=== PATIENT | female | born 1965 | race Caucasian/White ===

== ENCOUNTER → 2017-04-14 | Outpatient (CLI) | payer BC ==
--- NOTE | 2017-04-15 06:55 | US ---
EXAMINATION TYPE: US thyroid st tissue head/neck DATE OF EXAM: 04/14/2017 COMPARISON: US 2012 CLINICAL HISTORY: E03.9 Hypothyroidism,[id number] nodule. Pt on Synthroid x 1 year, pt stat es feeling something in throat GLAND SIZE: Right Lobe: 3.9 x 1.1 x 1.6 cm Overall Parenchyma: homogenous other than a 2 mm hypoechoic lesion. Left Lobe: 3.4 x 1.0x 1.3 cm Overall Parenchyma: homogeneous other than a 2 mm hypoechoic lesion. Isthmus Thickness: 0.2 cm NODULES: Two, small 2mm, too small to characterize nodules on each lobe . Bilateral neck scanned, small sub-centimeter (<0.5 cm) lymph nodes visible . No significant changes f rom study in 2011 IMPRESSION: Nonenlarged homogeneous thyroid gland other than bilateral 2 mm hypoechoic lesions, unchanged from 05 08 and presumably benign.
== END | disposition home or self-care (01) ==
LOC: RADUSMAIN 16:00
PROVIDERS: ATTEND Internal Medicine
DX: E04.1 Nontoxic single thyroid nodule (principal); E03.9 Hypothyroidism, unspecified
CPT/HCPCS: 76536

== ENCOUNTER → 2017-06-09 | Outpatient (CLI) | payer BC ==
--- NOTE | 2017-06-10 07:45 | MM ---
Reason for exam: screening (asymptomatic). Last mammogram was performed 1 year ago. History: Benign excisional biopsy of the left breast, July 2005. Took hormonal contraceptives for 10 years beginning at age 19. Physical Findings: A clinical breast exam by your physician is recommended on an annual basis and results should be correlated with mammographic findings. MG Screening Mammo w CAD Bilateral CC and MLO view(s) were taken. Prior study comparison: June 13, 2016, left breast MG work up mamm w CAD LT. June 05, 2016, bilateral MG screening mammo w CAD. The breast tissue is heterogeneously dense. This may lower the sensitivity of mammography. There is no discrete abnormality. Stable post operative changes in the left breast. No significant changes when compared with prior studies. ASSESSMENT: Benign, BI-RAD 2 RECOMMENDATION: Routine screening mammogram of both breasts in 1 year.
== END | disposition home or self-care (01) ==
LOC: RADMAMWWP 07:43
PROVIDERS: ATTEND Obstetrics & Gynecology
DX: Z12.31 Encounter for screening mammogram for malignant neoplasm of breast (principal)

== ENCOUNTER → 2018-06-14 | Outpatient (CLI) | payer BC ==
--- NOTE | 2018-06-14 14:05 | MM ---
Reason for exam: screening (asymptomatic). Last mammogram was performed 1 year ago. History: Benign excisional biopsy of the left breast, July 2005. Took hormonal contraceptives for 10 years beginning at age 19. Physical Findings: A clinical breast exam by your physician is recommended on an annual basis and results should be correlated with mammographic findings. MG 3D Screening Mammo W/Cad Bilateral CC and MLO view(s) were taken. Prior study comparison: June 09, 2017, bilateral MG screening mammo w CAD. June 13, 2016, left breast MG work up mamm w CAD LT. The breast tissue is heterogeneously dense. This may lower the sensitivity of mammography. Focal asymmetry upper outer left breast is stable. No significant changes when compared with prior studies. ASSESSMENT: Benign, BI-RAD 2 RECOMMENDATION: Routine screening mammogram of both breasts in 1 year.
== END | disposition home or self-care (01) ==
LOC: RADMAMWWP 07:31
PROVIDERS: ATTEND Obstetrics & Gynecology
DX: Z12.31 Encounter for screening mammogram for malignant neoplasm of breast (principal)
CPT/HCPCS: 77063; 77067

== ENCOUNTER → 2019-07-12 | Outpatient (CLI) | payer BC ==
[2019-07-12 09:54] LABS: ALT 35 U/L (9-52); AST 36 U/L (14-36); African American GFR (CKD) >90 (>60 ml/min/1.73 sqM); Albumin 4.2 g/dL (3.5-5.0); Alkaline Phosphatase 57 U/L (38-126); Anion Gap 9 mmol/L; Blood Urea Nitrogen 11 mg/dL (7-17); Calcium 9.7 mg/dL (8.4-10.2); Carbon Dioxide 27 mmol/L (22-30); Chloride 109 mmol/L (98-107); Cholesterol 175 mg/dL (<200); Glucose 92 mg/dL (74-99); HDL Cholesterol 75 mg/dL (40-60); LDL Cholesterol,Calculated 91 mg/dL (0-99); Non-African American GFR(CKD) 84 (>60 ml/min/1.73 sqM); Potassium 4.4 mmol/L (3.5-5.1); Sodium 145 mmol/L (137-145); Total Bilirubin 0.6 mg/dL (0.2-1.3); Total Protein 7.3 g/dL (6.3-8.2); Triglycerides 44 mg/dL (<150)
[2019-07-12 10:06] LABS: T4, Free (Free Thyroxine) 0.96 ng/dL (0.78-2.19)
--- NOTE | 2019-07-12 13:03 | BD ---
EXAMINATION TYPE: Axial Bone Density DATE OF EXAM: 07/12/2019 COMPARISON: NONE CLINICAL HISTORY: 53 YR OLD FEMALE...ICD-10 CODE: Z78.0 PMS, N95.1 PMS Height: 63.5 Weight: 142 FRAX RISK QUESTIONS: Family History (Parent hip fracture): YES RISK FACTORS HISTORY OF: History of Wrist Fracture: RT WRIST AT 11 YRS OLD Family History of Osteoporosis: YES, MOTHER WITH HIP BREAKS Active: YES Diet low in dairy products/other sources of calcium: YES Postmenopausal woman: YES, AT AGE 52 Hyperparathyroidism: NO Adrenal Insufficiency: NO MEDICATIONS: Thyroid Medications: YES, SYNTHROID FOR ABOUT 5 YRS Additional Medications: NOTHING TO NOTE Additional History: THYROID ONLY EXAM MEASUREMENTS: Bone mineral densitometry was performed using the [employer] System. Bone mineral density as measured about the Lumbar spine is: ----- L1-L4(G/cm2): 1.398 T Score Values are as follows: ----- L1: 0.9 ----- L2: 1.7 ----- L3: 2.1 ----- L4: 2.2 ----- L1-L4: 1.8 Bone mineral density FIRST DEXA SCAN......BASELINE STUDY Bone mineral density about the R hip (g/cm2): 0.968 Bone mineral density about the L hip (g/cm2): 0.979 T Score values are as follows: -----R Neck: -0.1 -----L Neck: -0.5 -----R Total: -0.2 -----L Total: -0.3 Bone mineral density BASELINE STUDY FRAX%s: THERE IS A 9.4% CHANCE FOR A MAJOR OSTEOPOROTIC FX AND A 0.1% FOR HIP.....PROBABILITY FOR F X IN 10 YRS TIME IMPRESSION: No evidence for osteoporosis or osteopenia. NOTE: T-SCORE=SD OF THE YOUNG ADULT MEAN.
--- NOTE | 2019-07-13 13:24 | MM ---
Reason for exam: screening (asymptomatic). Last mammogram was performed 1 year and 1 month ago. History: Patient is postmenopausal. Benign excisional biopsy of the left breast, July 2005. Took hormonal contraceptives for 10 years beginning at age 19. Physical Findings: A clinical breast exam by your physician is recommended on an annual basis and results should be correlated with mammographic findings. MG 3D Screening Mammo W/Cad Bilateral CC and MLO view(s) were taken. Prior study comparison: June 14, 2018, bilateral MG 3d screening mammo w/cad. June 09, 2017, bilateral MG screening mammo w CAD. There are scattered fibroglandular densities. Focal asymmetry left upper outer quadrant, stable. No significant changes when compared with prior studies. ASSESSMENT: Benign, BI-RAD 2 RECOMMENDATION: Routine screening mammogram of both breasts in 1 year.
== END | disposition home or self-care (01) ==
LOC: RADMAMWWP 08:08
PROVIDERS: ATTEND Obstetrics & Gynecology
DX: Z12.31 Encounter for screening mammogram for malignant neoplasm of breast (principal); N95.1 Menopausal and female climacteric states; Z13.220 Encounter for screening for lipoid disorders; Z13.29 Encounter for screening for other suspected endocrine disorder
CPT/HCPCS: 36415; 77063; 77067; 77080; 80053; 80061; 84439; 84443; 84479

== ENCOUNTER → 2020-03-14 | Outpatient (CLI) | payer BC | END | disposition home or self-care (01) | LOC: LABWHC1 11:19 | PROVIDERS: ATTEND Internal Medicine | DX: Z11.59 Encounter for screening for other viral diseases (principal) | CPT/HCPCS: 36415 ==

== ENCOUNTER → 2020-05-25 | Outpatient (CLI) | payer BC ==
[2020-05-25 17:52] LABS: Estradiol 56.4 pg/mL; Follicle Stimulating Hormone 64.1 mIU/mL
== END | disposition home or self-care (01) ==
LOC: LABWHC1 08:01
PROVIDERS: ATTEND Obstetrics & Gynecology
DX: E03.9 Hypothyroidism, unspecified (principal); L65.9 Nonscarring hair loss, unspecified; E34.50 Androgen insensitivity syndrome, unspecified; R53.83 Other fatigue
CPT/HCPCS: 36415; 82670; 83001; 84144; 84402; 84403; 84443; 84481

== ENCOUNTER → 2020-09-25 | Outpatient (CLI) | payer BC ==
--- NOTE | 2020-09-28 10:35 | MM ---
Reason for exam: screening (asymptomatic). Last mammogram was performed 1 year and 2 months ago. History: Patient is postmenopausal. Benign excisional biopsy of the left breast, July 2005. Took hormonal contraceptives for 10 years beginning at age 19. Physical Findings: A clinical breast exam by your physician is recommended on an annual basis and results should be correlated with mammographic findings. MG 3D Screening Mammo W/Cad Bilateral CC and MLO view(s) were taken. Prior study comparison: July 12, 2019, bilateral MG 3d screening mammo w/cad. June 14, 2018, bilateral MG 3d screening mammo w/cad. There are scattered fibroglandular densities. No significant changes when compared with prior studies. ASSESSMENT: Negative, BI-RAD 1 RECOMMENDATION: Routine screening mammogram of both breasts in 1 year.
== END | disposition home or self-care (01) ==
LOC: RADMAMWWP 16:16
PROVIDERS: ATTEND Obstetrics & Gynecology
DX: Z12.31 Encounter for screening mammogram for malignant neoplasm of breast (principal)
CPT/HCPCS: 77063; 77067

== ENCOUNTER → 2021-09-26 | Outpatient (CLI) | payer BC ==
--- NOTE | 2021-09-27 11:39 | MM ---
Reason for exam: screening (asymptomatic). Last mammogram was performed 1 year ago. History: Patient is postmenopausal. Benign excisional biopsy of the left breast, July 2005. Took hormonal contraceptives for 10 years beginning at age 19. Took estrogen for 4 months beginning at age 54. Physical Findings: A clinical breast exam by your physician is recommended on an annual basis and results should be correlated with mammographic findings. MG 3D Screening Mammo W/Cad Bilateral CC and MLO view(s) were taken. Prior study comparison: September 25, 2020, bilateral MG 3d screening mammo w/cad. July 12, 2019, bilateral MG 3d screening mammo w/cad. There are scattered fibroglandular densities. Global asymmetry bilaterally area unchanged. No significant changes when compared with prior studies. ASSESSMENT: Benign, BI-RAD 2 RECOMMENDATION: Routine screening mammogram of both breasts in 1 year.
== END | disposition home or self-care (01) ==
LOC: RADMAMWWP 07:30
PROVIDERS: ATTEND Obstetrics & Gynecology
DX: Z12.31 Encounter for screening mammogram for malignant neoplasm of breast (principal); Z78.0 Asymptomatic menopausal state
CPT/HCPCS: 77063; 77067

== ENCOUNTER → 2023-11-27 | Outpatient (CLI) | payer OTHER ==
--- NOTE | 2023-11-27 10:01 | BD ---
EXAMINATION TYPE: Axial Bone Density DATE OF EXAM: 11/27/2023 CLINICAL HISTORY: 58 years old Female. ICD-10 CODE: Z12.31 screen mammo Height: 64 Weight: 141 FRAX RISK QUESTIONS: yes Family History (Parent hip fracture): yes History of Fracture in Adulthood: no Secondary Osteoporosis: no RISK FACTORS HISTORY OF: Surgery to Spine/Hip(right/left)/Wrist (right/left): no MEDICATIONS: Thyroid Medications: yes Which medication: uni thyroid How Lon years Osteoporosis Medications: no EXAM MEASUREMENTS: Bone mineral densitometry was performed using the [employer] System. Bone mineral density as measured about the Lumbar spine is: ----- L1-L4(G/cm2): 1.279 T Score Values are as follows: ----- L1: 0.2 ----- L2: 0.6 ----- L3: 1.5 ----- L4: 0.7 ----- L1-L4: 0.8 Z Score Values are as follows: ----- L1: 1.1 ----- L2: 1.6 ----- L3: 2.5 ----- L4: 1.7 ----- L1-L4: 1.8 Bone mineral density has: Decreased -8.5% since study of: 07/12/2019 Bone mineral density about the R hip (g/cm2): 0.961 Bone mineral density about the L hip (g/cm2): 0.939 T Score values are as follows: -----R Neck: -0.5 -----L Neck: -1.0 -----R Total: -0.4 -----L Total: -0.5 Z Score values are as follows: -----R Neck: 0.6 -----L Neck: 0.1 -----R Total: 0.4 -----L Total: 0.2 Bone mineral density has: Decreased -2.5% since study of: 07/12/2019 FRAX%s: The graph provided illustrates a 12.6% chance for a major osteoporotic fx and a 0.3% chance f or the hips probability for fx in 10 years time. IMPRESSION: Normal (Values between +1 and -1 indicate normal bone mass). Consider repeating this study in 5 year s or sooner if there is some new clinical indication. NOTE: T-SCORE=SD OF THE YOUNG ADULT MEAN.
[2023-11-27 16:54] LABS: T4, Free (Free Thyroxine) 1.42 ng/dL (0.80-1.80)
--- NOTE | 2023-12-01 13:36 | MM ---
Reason for Exam: Screening (asymptomatic). Last mammogram was performed 1 year(s) and 1 month(s) ago. Patient History: Menarche at age 12. First Full-Term at age 27. Postmenopausal. Patient has history of breast feeding. Estrogen for 4 months starting at age 54. Hormonal Contraceptives for 7 years, 1 month, from age 19 until age 26. 07/2005, Benign Excisional Biopsy on the left side. Risk Values: [place] 5 year model risk: 1.9%. NCI Lifetime model risk: 11.1%. Prior Study Comparison: 09/25/2020 Bilateral Screening Mammogram, [facility]. 09/26/2021 Bilateral Screening Mammogram, [facility]. 10/28/2022 Bilateral MG 3D screening mammo w/cad, [facility]. Tissue Density: There are scattered areas of fibroglandular density. Findings: Analyzed By CAD. Right breast: There is no suspicious group of microcalcifications or new suspicious mass. Left breast: There is no suspicious group of microcalcifications or new suspicious mass. Overall Assessment: Negative, BI-RAD 1 Management: Screening Mammogram of both breasts in [address] [facility] will attempt to contact patient to return for supplemental views and ultrasound if indicated. Patient should continue monthly self-breast exams. A clinical breast exam by your physician is recommended on an annual basis. This exam should not preclude additional follow-up of suspicious palpable abnormalities. Note on Juana scores and lifetime risk: 1. A [place] score greater than 3% is considered moderate risk. If this is the case, consider specialist referral to assess eligibility for a risk reducing agent. 2. If overall lifetime risk for the development of breast cancer is 20% or higher, the patient may qualify for future screening with alternating mammogram and breast MRI. Electronically signed and approved by: Santi Diaz DO
== END | disposition home or self-care (01) ==
LOC: RADMAMWWP 07:06
PROVIDERS: ATTEND Family Medicine
DX: Z12.31 Encounter for screening mammogram for malignant neoplasm of breast (principal); M85.852 Other specified disorders of bone density and structure, left thigh; E55.9 Vitamin D deficiency, unspecified; E03.9 Hypothyroidism, unspecified; Z78.0 Asymptomatic menopausal state
CPT/HCPCS: 77063; 77067; 77080; 82306; 84439; 84443

== ENCOUNTER → 2024-07-01 | Outpatient (CLI) | payer OTHER ==
[2024-07-01 15:10] LABS: HGB 14.2 g/dL (12.0-15.0); MCH 31.4 pg (27.0-32.0); MCHC 33.8 g/dL (32.0-37.0); MCV 92.9 FL (80.0-97.0); Mean Platelet Volume 9.3 FL (9.5-12.2); NRBC Per 100 WBC 0 X 10*3/uL (0.00-0.01); Platelet Count 285 X 10*3/uL (140-440); RBC 4.52 X 10*6/uL (4.10-5.20); RDW 12.7 % (11.5-14.5); WBC 4.81 X 10*3/uL (4.50-10.00)
[2024-07-01 15:51] LABS: Appearance,Urine Clear (Clear); Bilirubin,Urine Negative (Negative); Blood,Urine Negative (Negative); Color,Urine Yellow (Yellow); Ketones,Urine Negative (Negative); Nitrite,Urine Negative (Negative); PH, Urine 7.5; Specific Gravity,Urine 1.022 (1.001-1.030); Urobilinogen,Urine 0.2 E.U./DL
[2024-07-01 16:01] LABS: Bacteria,Urine None Seen (None Seen)
[2024-07-01 16:03] LABS: ALT 28 U/L (8-44); AST 30 U/L (13-35); Albumin 4.4 g/dL (3.8-4.9); Albumin/Globulin Ratio 1.76 Ratio (1.60-3.17); Alkaline Phosphatase 65 U/L (41-126); BUN/Creat Ratio 18.89 Ratio (12.00-20.00); Calcium 9.8 mg/dL (8.7-10.3); Carbon Dioxide 27.3 mmol/L (21.6-31.8); Chloride 105 mmol/L (96-109); Chol/HDL Ratio 3.31 Ratio; Globulin 2.5 g/dL (1.6-3.3); Glucose 94 mg/dL (70-110); LDL Cholesterol,Calculated 135.6 mg/dL (0.0-131.0); Potassium 4.8 mmol/L (3.5-5.5); Sodium 143 mmol/L (135-145); T4, Free (Free Thyroxine) 1.15 ng/dL (0.80-1.80); Total Bilirubin 0.4 mg/dL (0.3-1.2); Total Protein 6.9 g/dL (6.2-8.2); VLDL Calculation 16.52 mg/dL (5.00-40.00)
== END | disposition home or self-care (01) ==
LOC: LABWHC1 08:10
PROVIDERS: ATTEND Family Medicine
DX: Z00.00 Encounter for general adult medical examination without abnormal findings (principal); E03.9 Hypothyroidism, unspecified
CPT/HCPCS: 36415; 80053; 80061; 81001; 82306; 83036; 84439; 84443; 84481; 85027

== ENCOUNTER → 2024-07-28 | Outpatient (CLI) | payer OTHER ==
--- NOTE | 2024-07-28 08:31 | US ---
EXAMINATION TYPE: US Aorta Screening DATE OF EXAM: 07/28/2024 COMPARISON: 06/14/13 CLINICAL INDICATION: Female, 58 years old with history of Z82.49 Family history of ischemic heart dis ease; Mother had an AAA TECHNIQUE: Multiple sonographic images of the abdominal aorta are obtained with grayscale and color D oppler imaging. Spectral Doppler imaging also performed. FINDINGS: EXAM MEASUREMENTS: Abdominal Aorta: Proximal: 2.8 x 2.3cm Mid: 1.9 x 2.3cm Distal: 1.6 x 2.1cm Bifurcation: Right Iliac: 1.2 x 1.3cm Left Iliac: 1.1 x 1.1cm KILN DRAWER NOTES: Prox aorta slightly limited due to bowel gas. Parts seen appear wnl. No AAA seen o n this study. IMPRESSION: Proximal aorta at the upper limits normal at 2.8 cm which could be normal for the patient. [facility], , 07/28/2024 8:28 AM
== END | disposition home or self-care (01) ==
LOC: RADUSWWP 07:55
PROVIDERS: ATTEND Family Medicine
DX: Z82.49 Family history of ischemic heart disease and other diseases of the circulatory system (principal)
CPT/HCPCS: 76706

== ENCOUNTER → 2024-12-29 | Outpatient (CLI) | payer OTHER ==
[2024-12-29 10:19] LABS: Basophils # (A) 0.03 X 10*3/uL (0.00-0.10); Basophils % (A) 0.5 %; Eosinophils # (A) 0.11 X 10*3/uL (0.04-0.35); Eosinophils % (A) 1.8 %; HCT 41.2 % (37.2-46.3); HGB 13.9 g/dL (12.0-15.0); Lymphocytes # (A) 1.78 X 10*3/uL (0.90-5.00); Lymphocytes % (A) 28.8 %; MCH 31.8 pg (27.0-32.0); MCHC 33.7 g/dL (32.0-37.0); MCV 94.3 FL (80.0-97.0); Mean Platelet Volume 9.8 FL (9.5-12.2); Monocytes # (A) 0.61 X 10*3/uL (0.20-1.00); Monocytes % (A) 9.9 %; NRBC Per 100 WBC 0 X 10*3/uL (0.00-0.01); Neutrophils # (A) 3.64 X 10*3/uL (1.80-7.70); Neutrophils % (A) 58.8 %; Platelet Count 283 X 10*3/uL (140-440); RBC 4.37 X 10*6/uL (4.10-5.20); RDW 12.3 % (11.5-14.5); WBC 6.18 X 10*3/uL (4.50-10.00)
[2024-12-29 16:07] LABS: ALT 24 U/L (8-44); AST 26 U/L (13-35); BUN/Creat Ratio 16.75 Ratio (12.00-20.00); Blood Urea Nitrogen 13.4 mg/dL (9.0-27.0); Calcium 9.6 mg/dL (8.7-10.3); Carbon Dioxide 25.7 mmol/L (21.6-31.8); Chloride 104 mmol/L (96-109); Chol/HDL Ratio 3.19 Ratio; Glucose 101 mg/dL (70-110); LDL Cholesterol,Calculated 129.8 mg/dL (0.0-131.0); Potassium 4.3 mmol/L (3.5-5.5); Sodium 140 mmol/L (135-145); T4, Free (Free Thyroxine) 1.22 ng/dL (0.80-1.80); VLDL Calculation 17.82 mg/dL (5.00-40.00)
== END | disposition home or self-care (01) ==
LOC: LABWHC1 08:01
PROVIDERS: ATTEND Family Medicine
DX: E03.9 Hypothyroidism, unspecified (principal); E78.00 Pure hypercholesterolemia, unspecified; E55.9 Vitamin D deficiency, unspecified
CPT/HCPCS: 36415; 80048; 80061; 82306; 83036; 84439; 84443; 84450; 84460; 84481; 85025

== ENCOUNTER → 2025-01-26 | Outpatient (CLI) | payer OTHER ==
--- NOTE | 2025-01-26 08:17 | US ---
EXAMINATION TYPE: US duplex aorta DATE OF EXAM: 01/26/2025 COMPARISON: US 2023 CLINICAL INDICATION: Female, 59 years old with history of I71.40 ABDOMINAL AORTIC ANEURYSM, WITHOUT R UPTURE,; TECHNIQUE: Multiple sonographic images of the abdominal aorta are obtained with grayscale and color D oppler imaging. FINDINGS: EXAM MEASUREMENTS: Abdominal Aorta: Proximal: 2.4 x 2.6cm Mid: 2.0 x 2.2cm Distal: 1.8 x 1.8cm Bifurcation: Right Iliac: 1.3 x 1.1cm Left Iliac: 1.1 x 1.2cm Mildly ectatic proximal aorta IMPRESSION: No evidence for aortic aneurysm. No further workup recommended for negative screening aortic aneurysm ultrasound per Society of Vascular Surgery Recommendations. [email or web address] [facility], , 01/26/2025 8:14 AM
== END | disposition home or self-care (01) ==
LOC: RADUSWWP 07:26
PROVIDERS: ATTEND Family Medicine
DX: I71.40 Abdominal aortic aneurysm, without rupture, unspecified (principal)
CPT/HCPCS: 93979